=== PATIENT | female | born 1995 | race Caucasian/White ===

== ENCOUNTER 2020-12-30 06:46 | Day surgery (SDC) | payer OTHER ==
[~2020-12-30 06:46] MED LIST: Lactated Ringers 1,000 ML IV SCH; Sodium Chloride 0.9% 10 ML Syringe FLUSH PRN
[2020-12-30] MEDS ORDERED: fentaNYL 100 MCG/2 ML SDV IV ONE (06:47)
[2020-12-30] MEDS ORDERED: HYDROmorphone 2 MG/ML SDV IV ONE (06:47)
[2020-12-30] MEDS ORDERED: Lactated Ringers 1,000 ML IV ONE (06:47)
[2020-12-30] MEDS ORDERED: Ondansetron 4 MG/2 ML SDV IVPUSH ONE (06:47)
[2020-12-30] MEDS ORDERED: Midazolam 1 MG/ML 2 ML SDV IV ONE (06:47)
[2020-12-30] MEDS ORDERED: Propofol 200 MG/20 ML SDV IV ONE (06:47)
[2020-12-30] MEDS ORDERED: Rocuronium 100 MG/10 ML MDV IV ONE (06:47)
[2020-12-30] MEDS ORDERED: Dexamethasone 4 MG/ML SDV IVPUSH ONE (06:47)
[2020-12-30] MEDS ORDERED: Ondansetron 8 MG Tab.DIS PO ONE (07:00)
[2020-12-30] MEDS ORDERED: Scopolamine 1.5 MG Transdermal Patch TOP ONE (07:00)
--- NOTE | 2020-12-30 09:27 | PCM.HP.2 ---
H&P History of Present Illness - General Date of Service: 12/30/20 Admit Problem/Dx: Admission Diagnosis/Problem Admission Diagnosis/Problem Tonsillectomy Source of Information: Patient History Limitations: Reports: No Limitations - History of Present Illness Initial Comments - Free Text/Narative: Here for tonsillectomy for chronic tonsillitis and recent left tonsillar abcess - Related Data Allergies/Adverse Reactions: Allergies Allergy/AdvReac Type Severity Reaction Status Date / Time azithromycin [From Zithromax] Allergy Respiratory Verified 12/30/20 08:38 Distress clonazepam [From Klonopin] Allergy Nausea Verified 12/30/20 08:38 escitalopram [From Lexapro] Allergy Nausea and Verified 12/30/20 08:38 Vomiting Home Medications: Home Meds buPROPion HCL [Wellbutrin Xl] 300 mg PO DAILY 08/07/18 [History] Pnv No.95/Ferrous Fum/Folic AC [ Caplet] 1 tab PO DAILY 12/29/20 [History] Multivitamin [Multi-Vitamin Daily] 1 each PO DAILY 12/30/20 [History] Omeprazole 10 mg PO DAILY 12/30/20 [History] polyethylene glycoL 3350 [MiraLAX] 17 gm PO DAILY 12/30/20 [History] Past Medical History HEENT History: Reports: Impaired Vision Other HEENT History: goiter; left thyroid nodule Cardiovascular History: Reports: None Respiratory History: Reports: None Gastrointestinal History: Reports: None Genitourinary History: Reports: UTI, Recurrent [employer] History: Reports: Musculoskeletal History: Reports: None Neurological History: Reports: None Psychiatric History: Reports: ADHD, Anxiety, Depression, Panic Attack, PTSD Other Psychiatric History: BINGE EATING DISORDER Endocrine/Metabolic History: Reports: Obesity/BMI 30+, Other (See Below) Other Endocrine/Metabolic History: GOITER. L THYROID NODULE - 9MM Hematologic History: Reports: None Immunologic History: Reports: None Oncologic (Cancer) History: Reports: None Dermatologic History: Reports: None - Past Surgical History Head Surgeries/Procedures: Reports: None Cardiovascular Surgical History: Reports: None Respiratory Surgical History: Reports: None GI Surgical History: Reports: None Female Surgical History: Reports: Section Endocrine Surgical History: Reports: None Neurological Surgical History: Reports: None Musculoskeletal Surgical History: Reports: Arthroscopic Knee Oncologic Surgical History: Reports: None Dermatological Surgical History: Reports: None Social & Family History - Tobacco Use Tobacco Use Status *Q: Unknown Ever Used Tobacco Used Tobacco, but Quit: No - Caffeine Use Caffeine Use: Reports: Coffee, Energy Drinks - Recreational Drug Use Recreational Drug Use: No Drug Use in Last 12 Months: No H&P Review of Systems - Review of Systems: Review Of Systems: Comprehensive ROS is negative, except as noted in HPI. Exam - Exam Exam: See Below - Vital Signs Vital Signs: Last Vital Signs Temp 98.3 F 12/30/20 07:17 Pulse 77 12/30/20 09:19 Resp 15 12/30/20 09:19 BP 136/64 12/30/20 09:19 Pulse Ox 98 12/30/20 09:19 Weight: 87.997 kg - Exam Lungs: Clear to Auscultation, Normal Respiratory Effort Cardiovascular: Regular Rate, Regular Rhythm Sepsis Event Note - Focused Exam Vital Signs: Vital Signs Temp Pulse Resp BP Pulse Ox 12/30/20 09:19 77 15 136/64 98 12/30/20 07:17 98.3 F 76 15 120/74 100 Problem List Initiated/Reviewed/Updated: Yes Orders Last 24hrs: Active Orders 24 hr Category Date Time Status Patient Status [ADT] Routine ADT 12/30/20 06:45 Active Patient to Empty Bladder [RC] ASDIRECTED Care 12/30/20 06:45 Active Verify Patient Consent Obtain [RC] ASDIRECTED Care 12/30/20 06:45 Active Nothing Per Oral Diet [DIET] Diet 12/30/20 Breakfast Ordered Lactated Ringers [Ringers, Lactated] 1,000 ml Med 12/30/20 06:45 Active IV ASDIRECTED Sodium Chloride 0.9% [Saline Flush] Med 12/30/20 06:45 Active 10 ml FLUSH ASDIRECTED PRN Peripheral IV Insertion Adult [OM.PC] Routine Oth 12/30/20 06:45 Ordered Resuscitation Status Routine Resus Stat 12/29/20 14:24 Ordered Medication Orders Lactated Ringer's (Ringers, Lactated) 1,000 mls @ 125 mls/hr IV ASDIRECTED JANIE Last Admin: 12/30/20 07:53 Dose: 125 mls/hr Documented by: DARLYN Sodium Chloride (Sodium Chloride 0.9% 10 Ml Syringe) 10 ml FLUSH ASDIRECTED PRN PRN Reason: Keep Vein Open Assessment/Plan Comment:: Chronic Tonsillitis with recent Abcess OK to proceed with tonsillectomy
--- NOTE | 2020-12-30 09:29 | PCM.OPNOTE ---
- General Post-Op/Procedure Note Date of Surgery/Procedure: 12/30/20 Operative Procedure(s): Tonsillectomy Findings: Chronic Tonsillitis Pre Op Diagnosis: Chronic Tonsillitis Post-Op Diagnosis: Same Anesthesia Technique: General ET Tube Primary Surgeon: Simeon Go Anesthesia Provider: Kofi Parra EBPratibha in mLs: 10 Complications: None Condition: Good
[2020-12-30] MEDS ORDERED: hydrOXYzine HCl 50 MG/ML SDV IM ONE (10:36)
--- NOTE | 2020-12-30 14:22 | OR ---
DATE OF OPERATION: 12/30/2020 SURGEON: Simeno Go MD PREOPERATIVE DIAGNOSIS: Chronic tonsillitis with recent left tonsillar abscess. POSTOPERATIVE DIAGNOSIS: Chronic tonsillitis with recent left tonsillar abscess. PROCEDURE PERFORMED: Tonsillectomy. ANESTHESIA: General. DESCRIPTION OF PROCEDURE: The patient was brought to the operating room where general endotracheal anesthesia was administered. The donut was placed behind the head and shoulder roll placed. Oral gag retractor was inserted. Both tonsils are enlarged, more so on the right. There is no evidence of acute infection. The right tonsil was grasped and retracted toward the midline. Electrocautery was used to dissect along its muscular plane and removed without difficulty. No bleeding occurred. Left tonsil was then grasped and removed with more difficulty. There was diffuse oozing throughout the entire tonsillar bed during the procedure. On a few occasions, I had to stop and hold pressure and was eventually able to obtain hemostasis. Once the tonsil was removed, tonsil sponge was placed for a few minutes. The bleeding had subsided enough that I could see several sites that were controlled with electrocautery. I suspect she has chronic inflammation on the side where she had her abscess a few months ago. I then sprayed Alek powder on both tonsillar beds after hemostasis was assured. The retractor was partially released and surgical sites observed for 5 minutes and remained hemostatic. I did then place a small nasal suction to suck out any blood in the nasopharynx. In doing so, she did get a small nosebleed on the right side which stops spontaneously. Oral gag retractor was removed. The nasopharynx had been inspected and no adenoid tissue was visible. She was extubated and returned to recovery in stable condition. ESTIMATED BLOOD LOSS: 10 mL. /[id number] 140 SABINA/JACQUE
== END 2020-12-30 12:05 | disposition home or self-care (01) ==
LOC: FB.SDS 06:46
PROVIDERS: ATTEND Surgery
DX: J35.01 Chronic tonsillitis (principal); E66.9 Obesity, unspecified; Z79.899 Other long term (current) drug therapy; Z68.36 Body mass index [BMI] 36.0-36.9, adult
CPT/HCPCS: 00170; 42826; 88304; A9270; J1100; J1170; J2250; J2405; J2704; J3010; J3410; J7120